=== PATIENT | male | born 1980 | race Caucasian/White ===

== ENCOUNTER 2018-03-20 12:15 | Emergency (ER) | payer SELFPAY ==
[~2018-03-20] VITALS: Ht 167.6 cm; Wt 91.3 kg
[2018-03-20 13:06] LABS: APPEARANCE CLEAR ((CLEAR)); BILIRUBIN NEGATIVE; BLOOD NEGATIVE; COLOR YELLOW ((YELLOW)); GLUCOSE (STRIP) NEGATIVE; KETONES NEGATIVE; LEUKOCYTES TRACE; NITRITE NEGATIVE; PROTEIN (STRIP) NEGATIVE; SPECIFIC GRAVITY 1.021 (1.000-1.030); UROBILINOGEN 0.2 MG/DL (0.2-1.0)
[2018-03-20 13:24] LABS: BACTERIA NONE SEEN /HPF; EPITHELIAL CELLS RARE /HPF; MUCUS NONE SEEN /LPF; RED BLOOD CELLS 0-5 /HPF (0-5); UCUL ADDED? NO; WHITE BLOOD CELLS 0-5 /HPF (0-5)
[2018-03-20 14:06] LABS: HEMATOCRIT 39.5 % (38.0-50.0); HEMOGLOBIN 13.2 G/DL (12.5-16.6); MCH 30.1 PG (29.0-34.0); MCHC 33.4 G/DL (30.0-36.0); MCV 90.2 FL (86-99); PLATELET COUNT 266 K/uL (156-360); RBC DIS.WIDTH-CV 12.9 % (11.8-14.6); RBC DIS.WIDTH-SD 42.6 % (39-53); RED BLOOD COUNT 4.38 M/uL (4.00-5.50); WHITE BLOOD COUNT 6.9 K/uL (4.1-10.2)
[2018-03-20 14:16] LABS: CHLORIDE 107 mEq/L (99-109); POTASSIUM 4.3 mEq/L (3.7-5.4); SODIUM 138 mEq/L (136-147)
[2018-03-20 14:18] LABS: GLUCOSE 85 mg/dL (70-99); TOTAL PROTEIN 6.4 g/dL (6.4-8.3)
[2018-03-20 14:20] LABS: TOTAL BILIRUBIN 0.4 mg/dL (0.0-1.0)
[2018-03-20 14:21] LABS: ALKALINE PHOSPHATASE 70 IU/L (3-129); CREATININE 0.8 mg/dL (0.6-1.3); GFR ESTIMATE (CALCULATED) > 59 mL/min/ (58.99-99999)
[2018-03-20 14:23] LABS: AST (GOT) 20 IU/L (2-34); UREA NITROGEN (BUN) 12 mg/dL (9-23)
[2018-03-20 14:24] LABS: ALT (GPT) 33 IU/L (3-49)
[2018-03-20] MEDS ORDERED: NORCO 5/3251 TABLET PO (14:31)
[2018-03-20 14:52] VITALS: BP 120/64
== END 2018-03-20 14:54 | disposition home or self-care (01) ==
LOC: EME 12:15
PROVIDERS: Physician Assistant
DX: N20.0 Calculus of kidney (principal); Z87.442 Personal history of urinary calculi
CPT/HCPCS: 74176; 80053; 81003; 85027; 99281; 99285; J2405; J7030